=== PATIENT | female | born 1940 | race Two or more races ===

== ENCOUNTER → 2021-06-21 | Outpatient (CLI) | payer OTHER | END | disposition home or self-care (01) | LOC: PPH VACUNA | DX: Z23 Encounter for immunization (principal) ==

== ENCOUNTER 2023-08-30 23:17 | Emergency (ER) | payer OTHER ==
[~2023-08-30] VITALS: Ht 152.4 cm; Wt 53.1 kg
[2023-08-31] MEDS ORDERED: KETOROLAC TROMETHAMINE 30 MG VIAL IV STA (00:50)
[2023-08-31] MEDS ORDERED: CEFTRIAXONE SODIUM 1,000 MG VIAL IV STA (00:50)
[2023-08-31] MEDS ORDERED: FAMOTIDINE/PF 20 MG/2 ML VIAL IV PUSH STA (00:51)
[2023-08-31] MEDS ORDERED: PROMETHAZINE HCL 50 MG/ML AMPUL IM STA (00:51)
[2023-08-31] MEDS ORDERED: 0.9 % SODIUM CHLORIDE 1,000 ML IV ONE (01:00)
[2023-08-31 01:02] LABS: HEMATOCRIT 38.1 % (36.0-45.00); HEMOGLOBIN 12.9 g/dL (12.0-15.00); MEAN CELL VOLUME 87.7 fL (80.00-100.00); MEAN CORPUSCULAR HEMOGLOBIN 29.7 pg (27.00-32.0); MEAN CORPUSCULAR HGB CONC 33.9 g/dl (32.0-36.0); PLATELET COUNT 227 K/uL (150-450); RED BLOOD COUNT 4.34 M/uL (4.00-6.00); RED CELL DISTRIBUTION WIDTH 14.6 % (11.5-14.5)
[2023-08-31 01:17] LABS: INR 1.09; PARTIAL THROMBOPLASTIN TIME 29.4 SECONDS (22.0-34.0); PROTHROMBIN TIME 11.4 SECONDS (9.0-11.5)
[2023-08-31 01:22] LABS: BILIRUBIN TOTAL 0.52 mg/dL (0.3-1.2); BILIRUBIN,CONJUGATED 0.13 mg/dL (0.0-0.2); BILIRUBIN,UNCONJUGATED 0.39 mg/dL (0.0-0.6); CALCIUM 9.2 mg/dL (8.5-10.1); CREATININE SERUM 0.79 mg/dL (0.55-1.02); GFR 70.57; GLOBULINA 4.9 G/DL (2.4-3.5); POTASSIUM 4.04 mEq/L (3.5-5.1); TOTAL PROTEIN 8.9 gm/dL (6.4-8.2)
[2023-08-31 05:39] LABS: PH,URINE 7.5 (5.0-8.0); URINE APPEARANCE Clear; URINE BILIRRUBIN Negative (NEGATIVE); URINE COLOR Yellow; URINE LEUKOCYTE Negative; URINE NITRATE Negative; URINE PROTEIN Trace (NEGATIVE); URINE UROBILINOGEN 0.2 E.U./dl
[2023-08-31 05:43] LABS: URINE BACTERIA 6.2 uL (0.0-1933); URINE RBC 10.6 uL (0.0-20.8)
[2023-08-31 06:22] LABS: URINE EPITHELIAL CELLS 0.3 uL (0.0-38.8); URINE GLUCOSE 100 MG/DL (NEGATIVE)
[2023-08-31 06:23] LABS: URINE BLOOD TRACES
== END 2023-08-31 11:41 | disposition home or self-care (01) ==
LOC: ER
PROVIDERS: General Practice
DX: R10.13 Epigastric pain (principal); Z88.2 Allergy status to sulfonamides
CPT/HCPCS: 36415; 76700; 93005; 96365; 96366; 96372; 99284; J0696; J1885; J2250; J3490